=== PATIENT | male | born 1985 | race African-American/Black ===

== ENCOUNTER 2019-10-03 07:58 | Emergency (ER) | payer OTHER, SELFPAY ==
[~2019-10-03] VITALS: Ht 180.3 cm; Wt 91.4 kg
[2019-10-03 08:02] VITALS: BP 110/61
[2019-10-03] MEDS ORDERED: KETOROLAC 30 MG/1 ML IM ONE (08:30)
[2019-10-03] MEDS ORDERED: KETOROLAC 60 MG/2 ML ONE (08:31)
[2019-10-03] MEDS ORDERED: KETOROLAC 30 MG/1 ML ONE (08:35)
--- NOTE | 2019-10-03 09:58 | NUR ---
Patient given discharge instructions and splint/crutches, they have confirmed that they understand the instructions. Patient ambulatory with steady gait.
== END 2019-10-03 10:19 | disposition home or self-care (01) ==
LOC: ED 08:45
DX: M76.62 Achilles tendinitis, left leg (principal); F17.290 Nicotine dependence, other tobacco product, uncomplicated
CPT/HCPCS: 29515; 73610; 96372; 99283; J1885

== ENCOUNTER 2019-12-25 18:59 | Emergency (ER) | payer SELFPAY ==
[~2019-12-25] VITALS: Ht 180.3 cm; Wt 85.0 kg
[2019-12-25] MEDS ORDERED: LIDOCAINE-MPF 1%, 5ML ONE (19:40)
[2019-12-25] MEDS ORDERED: HYDROcodone/APAP 5/325 TABLET ONE (19:41)
[2019-12-25] MEDS ORDERED: DIPH,PERTUSS(ACELL),TET VAC/PF 0.5 ML IM-VACC ONE ×2 (19:41→20:00)
--- NOTE | 2019-12-25 19:50 | NUR ---
PT MEDICATED PER MAR. IMAGING COMPLETED.
[2019-12-25] MEDS ORDERED: HYDROcodone/APAP 5/325 TABLET PO ONE (20:00)
[2019-12-25] MEDS ORDERED: LIDOCAINE 1%, 10ML INFIL ONE (20:00)
[2019-12-25 20:50] VITALS: BP 124/77
--- NOTE | 2019-12-25 20:51 | NUR ---
SPLINT BEING PLACED AT THIS TIME, PT REPORTS DECREASE IN PAIN. DENIES FURTHER NEEDS AT THIS TIME.
== END 2019-12-25 21:42 ==
LOC: ED 21:14
DX: S61.451A Open bite of right hand, initial encounter (principal); S56.127A Laceration of flexor muscle, fascia and tendon of right little finger at forearm level, initial encounter; S61.411A Laceration without foreign body of right hand, initial encounter; X58.XXXA Exposure to other specified factors, initial encounter; Y93.89 Activity, other specified; Y92.410 Unspecified street and highway as the place of occurrence of the external cause; Y99.8 Other external cause status
CPT/HCPCS: 12041; 90471; 90715; 99284

== ENCOUNTER 2019-12-28 11:50 | Inpatient (IN) | payer SELFPAY ==
[~2019-12-28] VITALS: Ht 180.3 cm; Wt 89.0 kg
[2019-12-28] MEDS ORDERED: AMOXICILLIN/CLAV 875-125MG TABLET ONE (12:27)
[2019-12-28] MEDS ORDERED: AMOXICILLIN/CLAV 875-125MG TABLET PO ONE (12:30)
--- NOTE | 2019-12-28 12:31 | NUR ---
CUTTER BANANA ROOM PER MAR.
[2019-12-28] MEDS ORDERED: NEOSPORIN OINT. PKT 1 PACKET ONE (12:37)
--- NOTE | 2019-12-28 13:19 | NUR ---
PIV PLACED, LABS DRAWN AND COLLECTED BY EXPANDED DUTY DENTAL ASSISTANT. IV ABX ADMIN PER JUN.
[2019-12-28 13:27] LABS: BASOPHILS # (AUTO) 0.02 x10^3/uL (0-0.1); BASOPHILS % (AUTO) 0 % (0-1); EOSINOPHILS # (AUTO) 0.25 x10^3/uL (0-0.4); EOSINOPHILS % (AUTO) 3 % (1-7); LYMPHOCYTES # (AUTO) 0.93 x10^3/uL (1-3.4); LYMPHOCYTES % (AUTO) 11 % (22-44); MD NO; MEAN CORPUSCULAR HGB CONC 32.5 g/dL (33.2-36.2); MEAN CORPUSCULAR VOLUME 98.5 fL (81-97); MONOCYTES # (AUTO) 0.52 x10^3/uL (0.2-0.8); MONOCYTES % (AUTO) 6 % (2-9); NEUTROPHILS # (AUTO) 7.13 x10^3/uL (1.8-6.8); NEUTROPHILS % (AUTO) 81 % (42-75); PLATELET COUNT 251 x10^3/uL (130-400); RED BLOOD COUNT 4.66 x10^6/uL (4.38-5.82); RED CELL DISTRIBUTION WIDTH 14.1 % (9.4-14.8)
[2019-12-28] MEDS ORDERED: SODIUM CHLORIDE FLUSH 10ML SYR IVF ONE (13:30)
[2019-12-28] MEDS ORDERED: AMPICILLIN/SULBACTAM 3 GM in SODIUM CHLORIDE 0.9% 100 ML IV ONE (13:30)
[2019-12-28 13:40] LABS: ALBUMIN 3.7 g/dL (3.4-5.0); ANION GAP 7 mmol/L (5-15); CALCIUM 8.6 mg/dL (8.5-10.1); CHLORIDE 110 mmol/L (98-107); CREATININE 0.99 mg/dL (0.7-1.3)
[2019-12-28] MEDS ORDERED: OMNIPAQUE 350 MG/ML, 100ML BOTTLE ONE (14:48)
[2019-12-28 15:01] LABS: HCT (SEDRATE) 45.5 % (39.2-51.8)
[2019-12-28] MEDS ORDERED: VANCOMYCIN PER PHARMACY MC PRN (16:30)
[2019-12-28] MEDS ORDERED: PIPERACILLIN/TAZO/PMX 3.375GM 50 ML ONE (16:57)
--- NOTE | 2019-12-28 17:08 | NUR ---
REPORT GIVEN TO ARMINDA HASTINGS
[2019-12-28] MEDS: PIPERACILLIN/TAZO/PMX 3.375GM 50 ML IV SCH ×2 (17:10→22:43)
[2019-12-28] MEDS ORDERED: hydrALAzine 20 MG/ML, 1ML IVPush PRN (17:30)
[2019-12-28] MEDS: LACTATED RINGERS 1,000 ML IV SCH (17:30)
[2019-12-28] MEDS ORDERED: MELATONIN 5 MG TABLET PO PRN (17:30)
[2019-12-28] MEDS ORDERED: DIPHENHYDRAMINE 50 MG CAPSULE PO PRN (17:30)
[2019-12-28] MEDS ORDERED: BISACODYL 10 MG SUPP PR PRN (17:30)
[2019-12-28] MEDS ORDERED: POLYETHYLENE GLYCOL 17 GM PACKET PO PRN (17:30)
[2019-12-28] MEDS ORDERED: ONDANSETRON 2MG/ML, 2ML IVPush PRN (17:30)
[2019-12-28] MEDS: morphine SULFATE 10 MG/ML, 1ML IVPush PRN ×2 (17:54→21:03)
[2019-12-28] MEDS ORDERED: PHARMACOKINETIC MONITORING MC PRN (18:00)
[2019-12-28] MEDS ORDERED: PHARMACOKINETIC CONSULTATION MC ONE (18:00)
[2019-12-28] MEDS: VANCOMYCIN 1,700 MG in SODIUM CHLORIDE 0.9% 250 ML IV SCH (18:21)
[2019-12-28 18:31] VITALS: BP 135/93
[2019-12-28] MEDS: ACETAMINOPHEN 325 MG TABLET PO PRN (18:46)
[2019-12-29] VITALS (10 sets, daily range): BP systolic 118–140; BP diastolic 75–90
[2019-12-29] MEDS: morphine SULFATE 10 MG/ML, 1ML IVPush PRN ×3 (00:20→09:45)
[2019-12-29] MEDS: ACETAMINOPHEN 325 MG TABLET PO PRN (01:33)
[2019-12-29] MEDS: PIPERACILLIN/TAZO/PMX 3.375GM 50 ML IV SCH (04:42)
[2019-12-29] MEDS: VANCOMYCIN 1,700 MG in SODIUM CHLORIDE 0.9% 250 ML IV SCH (05:08)
[2019-12-29 05:33] LABS: BASOPHILS # (AUTO) 0.01 x10^3/uL (0-0.1); BASOPHILS % (AUTO) 0 % (0-1); CHLORIDE 109 mmol/L (98-107); EOSINOPHILS # (AUTO) 0.37 x10^3/uL (0-0.4); EOSINOPHILS % (AUTO) 5 % (1-7); LYMPHOCYTES # (AUTO) 0.89 x10^3/uL (1-3.4); LYMPHOCYTES % (AUTO) 12 % (22-44); MD NO; MEAN CORPUSCULAR HEMOGLOBIN 32.1 pg (27.5-34.5); MEAN CORPUSCULAR HGB CONC 32.7 g/dL (33.2-36.2); MEAN CORPUSCULAR VOLUME 98.2 fL (81-97); MEAN PLATELET VOLUME 8.1 fL (7.4-10.4); MONOCYTES # (AUTO) 0.72 x10^3/uL (0.2-0.8); MONOCYTES % (AUTO) 10 % (2-9); NEUTROPHILS # (AUTO) 5.56 x10^3/uL (1.8-6.8); NEUTROPHILS % (AUTO) 74 % (42-75); PLATELET COUNT 219 x10^3/uL (130-400); RED BLOOD COUNT 4.28 x10^6/uL (4.38-5.82); RED CELL DISTRIBUTION WIDTH 13.8 % (9.4-14.8)
[2019-12-29 05:46] LABS: ANION GAP 6 mmol/L (5-15); CALCIUM 8.9 mg/dL (8.5-10.1); CREATININE 0.86 mg/dL (0.7-1.3)
[2019-12-29] MEDS ORDERED: PANTOPRAZOLE 40 MG IV ONE (06:28)
[2019-12-29] MEDS ORDERED: PANTOPRAZOLE 40MG TABLET JT ONE (06:30)
[2019-12-29] MEDS ORDERED: BACITRACIN 50,000 UNIT ONE (06:46)
[2019-12-29] MEDS ORDERED: BACITRACIN OINT 500U/GM, 15 GM ONE (06:46)
[2019-12-29] MEDS ORDERED: METOCLOPRAMIDE 5 MG/ML, 2ML ONE (06:58)
[2019-12-29] MEDS ORDERED: FENTANYL PF 100 MCG/2ML ONE ×2 (06:58→07:52)
[2019-12-29] MEDS ORDERED: LIDOCAINE-MPF 2% ,5ML ONE (06:58)
[2019-12-29] MEDS ORDERED: MIDAZOLAM 1 MG/ML, 2ML ONE (06:58)
[2019-12-29] MEDS ORDERED: PANTOPRAZOLE 40 MG IV IVPush ONE (07:00)
[2019-12-29] MEDS ORDERED: PROPOFOL 10 MG/ML, 20ML ONE (07:29)
[2019-12-29] MEDS ORDERED: DEXAMETHASONE 4 MG/ML, 1ML ONE (07:29)
[2019-12-29] MEDS ORDERED: ONDANSETRON 2MG/ML, 2ML ONE (07:29)
[2019-12-29] MEDS ORDERED: PROMETHAZINE 25 MG/ML, 1ML IVPush PRN (07:30)
[2019-12-29] MEDS ORDERED: hydrALAzine 20 MG/ML, 1ML IV PRN (07:30)
[2019-12-29] MEDS ORDERED: ALBUTEROL SULFATE 2.5 MG/3 ML NPPB PRN (07:30)
[2019-12-29] MEDS ORDERED: FENTANYL PF 100 MCG/2ML IV PRN (07:30)
[2019-12-29] MEDS ORDERED: LABETALOL 5MG/ML, 20ML IV PRN (07:30)
[2019-12-29] MEDS ORDERED: OXYcodone 5 MG/5 ML ORAL.SOL UDC PO PRN (07:30)
[2019-12-29] MEDS ORDERED: LORazepam 2 MG/ML, 1ML IVPush PRN (07:30)
[2019-12-29] MEDS ORDERED: HYDROmorphone 1 MG/ML, 1ML INJ IVPush PRN (07:30)
[2019-12-29] MEDS ORDERED: MEPERIDINE/PF 25MG/0.5ML IVPush PRN (07:30)
[2019-12-29] MEDS ORDERED: ACETAMINOPHEN 325 MG TABLET PO PRN (07:30)
[2019-12-29] MEDS ORDERED: OXYcodone 5 MG/5 ML ORAL.SOL UDC ONE (07:53)
[2019-12-29] MEDS: DOXYCYCLINE 100MG CAP PO SCH ×2 (10:56→20:20)
[2019-12-29] MEDS: AMOXICILLIN/CLAV 875-125MG TABLET PO SCH ×2 (10:56→20:20)
[2019-12-29] MEDS: SENNA/DOCUSATE TABLET PO SCH (11:00)
[2019-12-29] MEDS ORDERED: OXYcodone IR 5MG TABLET PO PRN (12:00)
[2019-12-29] MEDS: LACTATED RINGERS 1,000 ML IV SCH (13:47)
[2019-12-29] MEDS ORDERED: ENOXAPARIN 40 MG/0.4 ML SQ SCH (15:00)
[2019-12-30 00:23] VITALS: BP 112/72
[2019-12-30 06:09] LABS: BASOPHILS # (AUTO) 0.02 x10^3/uL (0-0.1); BASOPHILS % (AUTO) 0 % (0-1); EOSINOPHILS # (AUTO) 0.08 x10^3/uL (0-0.4); EOSINOPHILS % (AUTO) 1 % (1-7); LYMPHOCYTES # (AUTO) 1.11 x10^3/uL (1-3.4); LYMPHOCYTES % (AUTO) 10 % (22-44); MD NO; MEAN CORPUSCULAR HEMOGLOBIN 32.2 pg (27.5-34.5); MEAN CORPUSCULAR HGB CONC 32.8 g/dL (33.2-36.2); MEAN CORPUSCULAR VOLUME 98.2 fL (81-97); MEAN PLATELET VOLUME 8.5 fL (7.4-10.4); MONOCYTES # (AUTO) 0.92 x10^3/uL (0.2-0.8); MONOCYTES % (AUTO) 8 % (2-9); NEUTROPHILS # (AUTO) 9.02 x10^3/uL (1.8-6.8); NEUTROPHILS % (AUTO) 81 % (42-75); PLATELET COUNT 245 x10^3/uL (130-400); RED BLOOD COUNT 4.16 x10^6/uL (4.38-5.82); RED CELL DISTRIBUTION WIDTH 13.7 % (9.4-14.8)
[2019-12-30] MEDS ORDERED: DOXY100C2 PO (07:06)
[2019-12-30] MEDS ORDERED: NAPR-856 PO (07:06)
[2019-12-30] MEDS ORDERED: AMOX1TAB12 PO (07:06)
[2019-12-30 07:07] VITALS: BP 127/75
[2019-12-30] MEDS: KETOROLAC 30 MG/1 ML IVPush ONE ×2 (07:30→07:51)
[2019-12-30] MEDS: AMOXICILLIN/CLAV 875-125MG TABLET PO SCH (07:51)
[2019-12-30] MEDS: DOXYCYCLINE 100MG CAP PO SCH (07:51)
[2019-12-30] MEDS: SENNA/DOCUSATE TABLET PO SCH (07:58)
[2019-12-30] MEDS ORDERED: OXYC-302 PO (08:43)
[2019-12-30] MEDS ORDERED: KETOROLAC 30 MG/1 ML IM ONE (10:00)
== END 2019-12-30 11:05 | disposition home or self-care (01) | DRG 580 ==
LOC: ED 13:08 → EDIP 17:11 → 3N 17:17 → DCLOUNGE 12-30 10:59
PROVIDERS: ADMIT Internal Medicine; ATTEND Internal Medicine
PROC: 0LQ70ZZ Repair Right Hand Tendon, Open Approach (ICD-10-PCS; 2019-12-29)
PROC: 0X9J0ZZ Drainage of Right Hand, Open Approach (ICD-10-PCS; principal; 2019-12-29 07:00)
DX: L02.511 Cutaneous abscess of right hand (principal); L03.113 Cellulitis of right upper limb; S61.216A Laceration without foreign body of right little finger without damage to nail, initial encounter; S61.451A Open bite of right hand, initial encounter; W50.3XXA Accidental bite by another person, initial encounter; Y93.89 Activity, other specified; Y92.89 Other specified places as the place of occurrence of the external cause; Y99.8 Other external cause status
CPT/HCPCS: 36415; 80048; 82040; 85025; 85651; 87040; 87070; 87075; 87077; 87205; 87635; 96365; G0378; J0295; J1100; J1650; J1885; J2250; J2405; J2543; J2704; J3010; J3370; Q9967; C9113; J2270; J2765; J7050; J7120

== ENCOUNTER 2020-01-16 01:45 | Emergency (ER) | payer SELFPAY ==
[~2020-01-16] VITALS: Ht 182.9 cm; Wt 84.7 kg
[~2020-01-16 01:45] MED LIST: AMOX1TAB12 PO; DOXY100C2 PO; NAPR-856 PO; OXYC-302 PO
[2020-01-16 01:49] VITALS: BP 125/77
[2020-01-16] MEDS ORDERED: HYDROcodone/APAP 5/325 TABLET ONE (02:09)
[2020-01-16] MEDS ORDERED: LIDOCAINE-MPF 1%, 5ML ONE (02:15)
--- NOTE | 2020-01-16 04:33 | NUR ---
Pt provided care during [employer] downtime. Given norco 5mg tablet, lidocaine 1% 10mL for medication. R hand was xray. Wound was cleansed, sutured, and dressed. Pt stable at discharge and verbalized understanding of discharge instructions. Check papercharting.
== END 2020-01-16 04:39 | disposition home or self-care (01) ==
LOC: ED 01:51
DX: S62.358 Nondisplaced fracture of shaft of other metacarpal bone (principal); S61.214A Laceration without foreign body of right ring finger without damage to nail, initial encounter; S61.216A Laceration without foreign body of right little finger without damage to nail, initial encounter; W01.0XXA Fall on same level from slipping, tripping and stumbling without subsequent striking against object, initial encounter; Y93.89 Activity, other specified; Y92.098 Other place in other non-institutional residence as the place of occurrence of the external cause; Y99.8 Other external cause status
CPT/HCPCS: 12041; 99284

== ENCOUNTER 2020-01-23 08:30 | Emergency (ER) | payer SELFPAY ==
[~2020-01-23] VITALS: Ht 180.3 cm; Wt 85.3 kg
[2020-01-23 08:31] VITALS: BP 128/78
== END 2020-01-23 08:44 ==
LOC: ED 08:38
DX: S61.216D Laceration without foreign body of right little finger without damage to nail, subsequent encounter (principal); X58.XXXD Exposure to other specified factors, subsequent encounter
CPT/HCPCS: 99282